=== PATIENT | female | born 1955 | race African-American/Black ===

== ENCOUNTER 2016-06-27 13:44 | Emergency (ER) | payer MEDICAID | END 2016-06-27 15:41 | disposition home or self-care (01) | LOC: D.ER 13:44 | DX: J06.9 Acute upper respiratory infection, unspecified (principal); F17.200 Nicotine dependence, unspecified, uncomplicated; I10 Essential (primary) hypertension; F41.9 Anxiety disorder, unspecified ==

== ENCOUNTER 2016-06-28 09:57 | Emergency (ER) | payer MEDICAID ==
[2016-06-28 11:30] LABS: BASOPHILS 0.4 % (0.0-2.0); EOSINOPHILS 0.1 % (0-7); HEMATOCRIT 41.6 % (36.0-48.0); IMMATURE GRANULOCYTES 0.4 % (0-5); LYMPHOCYTES 14.3 % (15-50); MCH 31.8 pg (26.0-34.0); MCHC 33.7 g/dL (31.0-37.0); MCV 94.5 fL (80.0-100.0); MEAN PLATELET VOLUME 9.8 fL (7.4-10.4); MONOCYTES 4.4 % (2-11); NEUTROPHILS 80.4 % (40-80); PLATELET COUNT 285 10x3/uL (130-400); RDW 14.1 % (11.5-14.5); WBC 8.4 10x3/uL (4.8-10.8)
== END 2016-06-28 11:55 | disposition home or self-care (01) ==
LOC: D.ER 09:57
PROVIDERS: Physician Assistant
DX: R50.9 Fever, unspecified (principal); J20.9 Acute bronchitis, unspecified; J06.9 Acute upper respiratory infection, unspecified; I10 Essential (primary) hypertension; M54.16 Radiculopathy, lumbar region; F17.200 Nicotine dependence, unspecified, uncomplicated

== ENCOUNTER 2016-06-30 09:57 | Emergency (ER) | payer MEDICAID | END 2016-06-30 11:30 | disposition home or self-care (01) | LOC: D.ER 09:57 | DX: J01.90 Acute sinusitis, unspecified (principal); J20.9 Acute bronchitis, unspecified; I10 Essential (primary) hypertension; M54.16 Radiculopathy, lumbar region; F17.200 Nicotine dependence, unspecified, uncomplicated ==

== ENCOUNTER 2016-07-08 09:15 | Emergency (ER) | payer MEDICAID | END 2016-07-08 11:30 | disposition left against medical advice (07) | LOC: D.ER 09:15 | DX: R05 Cough (principal) ==

== ENCOUNTER 2016-07-16 09:49 | Emergency (ER) | payer MEDICAID | END 2016-07-16 12:15 | disposition home or self-care (01) | LOC: D.ER 09:49 | DX: B34.9 Viral infection, unspecified (principal); R50.9 Fever, unspecified; J01.90 Acute sinusitis, unspecified; I10 Essential (primary) hypertension ==

== ENCOUNTER 2016-09-20 10:18 | Emergency (ER) | payer MEDICAID | END 2016-09-20 11:15 | disposition home or self-care (01) | LOC: D.ER 10:18 | DX: M54.9 Dorsalgia, unspecified (principal); M62.838 Other muscle spasm; T14.8 Other injury of unspecified body region; X58.XXXA Exposure to other specified factors, initial encounter; Y93.89 Activity, other specified; Y92.89 Other specified places as the place of occurrence of the external cause; J06.9 Acute upper respiratory infection, unspecified; F17.200 Nicotine dependence, unspecified, uncomplicated ==

== ENCOUNTER 2016-10-03 08:44 | Emergency (ER) | payer MEDICAID | END 2016-10-03 10:32 | disposition home or self-care (01) | LOC: D.ER 08:44 | DX: J20.9 Acute bronchitis, unspecified (principal); I10 Essential (primary) hypertension; M54.16 Radiculopathy, lumbar region; F17.200 Nicotine dependence, unspecified, uncomplicated ==

== ENCOUNTER 2016-11-03 09:24 | Emergency (ER) | payer MEDICAID | END 2016-11-03 10:27 | disposition home or self-care (01) | LOC: D.ER 09:24 | DX: S46.912A Strain of unspecified muscle, fascia and tendon at shoulder and upper arm level, left arm, initial encounter (principal); X50.0XXA Overexertion from strenuous movement or load, initial encounter; Y93.89 Activity, other specified; Y92.89 Other specified places as the place of occurrence of the external cause; F17.200 Nicotine dependence, unspecified, uncomplicated ==

== ENCOUNTER 2016-11-09 07:03 | Emergency (ER) | payer MEDICAID | END 2016-11-09 08:38 | disposition home or self-care (01) | LOC: D.ER 07:03 | DX: S43.402A Unspecified sprain of left shoulder joint, initial encounter (principal); X58.XXXA Exposure to other specified factors, initial encounter; I10 Essential (primary) hypertension ==

== ENCOUNTER 2016-11-13 08:07 | Emergency (ER) | payer MEDICAID | END 2016-11-13 09:20 | disposition home or self-care (01) | LOC: D.ER 08:07 | DX: M25.512 Pain in left shoulder (principal); I10 Essential (primary) hypertension ==

== ENCOUNTER 2016-12-26 13:28 | Emergency (ER) | payer MEDICAID | END 2016-12-26 16:05 | disposition home or self-care (01) | LOC: D.ER 13:28 | DX: M54.12 Radiculopathy, cervical region (principal); I10 Essential (primary) hypertension; F17.200 Nicotine dependence, unspecified, uncomplicated ==

== ENCOUNTER 2016-12-30 10:51 | Emergency (ER) | payer MEDICAID | END 2016-12-30 12:04 | disposition left against medical advice (07) | LOC: D.ER 10:51 | DX: R51 Headache (principal); M25.512 Pain in left shoulder ==

== ENCOUNTER 2017-01-03 09:14 | Emergency (ER) | payer MEDICAID | END 2017-01-03 09:37 | disposition left against medical advice (07) | LOC: D.ER 09:14 | DX: M54.12 Radiculopathy, cervical region (principal); I10 Essential (primary) hypertension; F17.200 Nicotine dependence, unspecified, uncomplicated ==

== ENCOUNTER 2017-01-05 11:44 | Emergency (ER) | payer MEDICAID | END 2017-01-05 15:36 | disposition left against medical advice (07) | LOC: D.ER 11:44 | DX: M25.512 Pain in left shoulder (principal) ==

== ENCOUNTER 2017-03-02 11:11 | Emergency (ER) | payer MEDICAID | END 2017-03-02 12:12 | disposition home or self-care (01) | LOC: D.ER 11:11 | DX: M54.16 Radiculopathy, lumbar region (principal); W01.0XXA Fall on same level from slipping, tripping and stumbling without subsequent striking against object, initial encounter; Y93.89 Activity, other specified; Y92.511 Restaurant or cafe as the place of occurrence of the external cause; I10 Essential (primary) hypertension; F17.200 Nicotine dependence, unspecified, uncomplicated ==

== ENCOUNTER 2017-03-09 11:01 | Emergency (ER) | payer MEDICAID | END 2017-03-09 12:07 | disposition home or self-care (01) | LOC: D.ER 11:01 | DX: S70.02XA Contusion of left hip, initial encounter (principal); W01.0XXA Fall on same level from slipping, tripping and stumbling without subsequent striking against object, initial encounter; Y93.89 Activity, other specified; Y92.511 Restaurant or cafe as the place of occurrence of the external cause; S40.012A Contusion of left shoulder, initial encounter; I10 Essential (primary) hypertension; F17.200 Nicotine dependence, unspecified, uncomplicated ==

== ENCOUNTER 2017-03-27 11:35 | Emergency (ER) | payer MEDICAID | END 2017-03-27 14:18 | disposition home or self-care (01) | LOC: D.ER 11:35 | DX: M54.16 Radiculopathy, lumbar region (principal); M25.512 Pain in left shoulder; Z91.81 History of falling; I10 Essential (primary) hypertension; F17.200 Nicotine dependence, unspecified, uncomplicated ==

== ENCOUNTER 2017-04-30 12:14 | Emergency (ER) | payer MEDICAID | END 2017-04-30 14:40 | disposition home or self-care (01) | LOC: D.ER 12:14 | DX: J20.9 Acute bronchitis, unspecified (principal); F17.200 Nicotine dependence, unspecified, uncomplicated; I10 Essential (primary) hypertension ==

== ENCOUNTER 2017-05-06 10:25 | Emergency (ER) | payer MEDICAID | END 2017-05-06 11:47 | disposition home or self-care (01) | LOC: D.ER 10:25 | DX: M54.16 Radiculopathy, lumbar region (principal); F17.200 Nicotine dependence, unspecified, uncomplicated; V43.52XA Car driver injured in collision with other type car in traffic accident, initial encounter; Y93.89 Activity, other specified; Y92.481 Parking lot as the place of occurrence of the external cause ==

== ENCOUNTER 2017-07-04 07:05 | Emergency (ER) | payer MEDICAID | END 2017-07-04 09:51 | disposition home or self-care (01) | LOC: D.ER 07:05 | DX: S80.01XA Contusion of right knee, initial encounter (principal); W01.0XXA Fall on same level from slipping, tripping and stumbling without subsequent striking against object, initial encounter; Y93.89 Activity, other specified; Y92.410 Unspecified street and highway as the place of occurrence of the external cause; M23.91 Unspecified internal derangement of right knee; F17.200 Nicotine dependence, unspecified, uncomplicated ==

== ENCOUNTER 2017-07-11 02:37 | Emergency (ER) | payer MEDICAID | END 2017-07-11 03:22 | disposition home or self-care (01) | LOC: D.ER 02:37 | DX: S83.91XA Sprain of unspecified site of right knee, initial encounter (principal); W19.XXXA Unspecified fall, initial encounter; Y93.89 Activity, other specified; Y92.019 Unspecified place in single-family (private) house as the place of occurrence of the external cause ==

== ENCOUNTER 2017-08-24 14:59 | Emergency (ER) | payer MEDICAID | END 2017-08-24 15:45 | disposition left against medical advice (07) | LOC: D.ER 14:59 | DX: S49.92XA Unspecified injury of left shoulder and upper arm, initial encounter (principal); X58.XXXA Exposure to other specified factors, initial encounter; Y93.89 Activity, other specified; Y92.89 Other specified places as the place of occurrence of the external cause ==

== ENCOUNTER 2017-10-22 12:00 | Emergency (ER) | payer MEDICAID | END 2017-10-22 14:23 | disposition home or self-care (01) | LOC: D.ER 12:00 | DX: M25.512 Pain in left shoulder (principal) ==

== ENCOUNTER 2017-10-29 10:29 | Emergency (ER) | payer MEDICAID ==
[2017-11-26] MEDS ORDERED: CATAPRES0.2 MG PO (07:48)
[2017-11-26] MEDS ORDERED: PAXIL20 MG PO (07:49)
[2017-11-26] MEDS ORDERED: PROAIR HFA8.5 GM INH (07:50)
[2017-11-26] MEDS ORDERED: PEPCID20 MG PO (07:50)
[2017-12-25 10:46] VITALS: BMI 27.5
== END 2017-10-29 11:18 | disposition home or self-care (01) ==
LOC: D.ER 10:29
DX: M25.512 Pain in left shoulder (principal)

== ENCOUNTER 2017-11-19 16:09 | Emergency (ER) | payer MEDICAID ==
[~2017-11-19] VITALS: Ht 157.5 cm; Wt 73.2 kg
[2017-11-19 16:16] VITALS: BP 141/92; Ht 157.5 cm; Wt 73.2 kg
[2017-11-19] MEDS ORDERED: KLONOPIN0.5 MG PO (16:17)
[2017-11-19] MEDS ORDERED: NORVASC10 MG PO (16:17)
[2017-11-19] MEDS ORDERED: ZOFRAN4 MG PO (16:18)
[2017-11-19] MEDS ORDERED: HYDROCODONE-APA1 TAB PO (16:18)
[2017-11-19] MEDS ORDERED: XANAX1 MG PO (16:18)
[2017-11-26] MEDS ORDERED: CATAPRES0.2 MG PO (07:48)
[2017-11-26] MEDS ORDERED: PAXIL20 MG PO (07:49)
[2017-11-26] MEDS ORDERED: PROAIR HFA8.5 GM INH (07:50)
[2017-11-26] MEDS ORDERED: PEPCID20 MG PO (07:50)
[2017-12-25 10:46] VITALS: Ht 157.5 cm; Wt 73.2 kg
== END 2017-11-19 17:35 | disposition home or self-care (01) ==
LOC: D.ER 16:09
DX: M25.512 Pain in left shoulder (principal); F17.200 Nicotine dependence, unspecified, uncomplicated

== ENCOUNTER 2017-11-27 07:00 | Day surgery (SDC) | payer MEDICAID ==
[2017-11-26 08:22] LABS: HEMATOCRIT 39.7 % (36.0-48.0); HEMOGLOBIN 13.2 g/dL (12-16); MCH 31.4 pg (26.0-34.0); MCHC 33.2 g/dL (31.0-37.0); MCV 94.3 fL (80.0-100.0); MEAN PLATELET VOLUME 9.7 fL (7.4-10.4); RBC 4.21 10x6/uL (4.00-5.40); RDW 14.4 % (11.5-14.5); WBC 9.8 10x3/uL (4.8-10.8)
[~2017-11-27] VITALS: Ht 157.5 cm; Wt 70.8 kg
--- NOTE | ~2017-11-27 | OP ---
PATIENT NAME: BARI VILLASEÑOR MEDICAL RECORD: [id number] :59 LOCATION:[facility] ADMISSION DATE: SURGEON: JABIER DONATO MD DATE OF OPERATION: 11/27/2017 PREOPERATIVE DIAGNOSIS: Impingement syndrome of the left shoulder with rotator cuff tear. POSTOPERATIVE DIAGNOSIS: Impingement syndrome of the left shoulder with rotator cuff tear. PROCEDURES: 1. Arthroscopic rotator cuff repair. 2. Arthroscopic distal clavicle excision done through separate incision -- 1 cm. 3. Arthroscopic subacromial decompression, acromioplasty and bursectomy. SURGEON: Jabier Donato MD ANESTHESIA: General. INTRAOPERATIVE COMPLICATIONS: None. SUMMARY OF PATHOLOGIC FINDINGS: A full thickness rotator cuff tear consistent with the MRI. OPERATIVE SUMMARY IN DETAIL: After the appropriate preoperative orthopedic surgery consent as well as anesthetic consultation, evaluation and clearance, the patient was brought to the operating room and placed on the operating table in supine position. After general laryngeal mask airway was administered, the patient was placed in the right lateral decubitus position. All pressure points were well padded to include down leg peroneal pad as well as axillary roll. The patient was held firmly to the operating table using the vacuum pack suction system. The left upper extremity and shoulder were then prepped and draped in routine sterile fashion. The arm was held in the [employer] traction boom at 30 degrees of forward flexion, 30 degrees of abduction, 10 pounds of traction laterally. Arthroscopy was established in the glenohumeral joint from posterior portal. Anterior portal was established in the anterior safe interval. Diagnostic arthroscopy did reveal the patient had the above findings. Transrotator cuff portal was created. The undersurface of the rotator cuff was debrided from any nonviable appearing tissue and the supraspinatus tendinous footprint was decorticated. Attention was then turned to the subacromial space. While on subacromial space, [place] tissue ablation system was utilized to denude the undersurface of the acromion of all soft tissue elements and release the coracoacromial ligament. A 5-0 barrel bur was used to perform acromioplasty at the level of acromioclavicular joint. Having completed this, arthroscopy was used to directly visualize distal clavicle while through a separate anterior arthroscopic portal, distal clavicle was excised for 1 cm. Attention was then turned to the rotator cuff tear. Further decortication was then followed by placing an inverted mattress suture through the rotator cuff tear. It was anchored laterally with a 5.5 SwiveLock from [employer]. Having completed this, arthroscopy portals were closed in routine interrupted fashion using 4-0 Prolene. Sterile dressings were applied. The patient was awakened, taken to the recovery room in stable condition. All final needle and sponge counts were correct. OPERATIVE REPORT [id number] BARI VILLASEÑOR TRANSINT:[id number] Voice Confirmation ID: [id number] DOCUMENT ID: [id number] KINGA MOSLEY, JABIER MARIANO at 1538 CC: [id number] DICTATION DATE: 11/27/17 1121 [employer] SPECIALIST: 11/27/17 1133 [facility] 11/27/17 [facility] [address] [place] [address]
[~2017-11-27 07:00] MED LIST: CATAPRES0.2 MG PO; HYDROCODONE-APA1 TAB PO; KLONOPIN0.5 MG PO; NORVASC10 MG PO; PAXIL20 MG PO; PEPCID20 MG PO; PROAIR HFA8.5 GM INH; XANAX1 MG PO; ZOFRAN4 MG PO
[2017-11-27 08:52] VITALS: Ht 157.5 cm; Wt 70.8 kg
[2017-11-27] MEDS ORDERED: HYDROCODONE-APA1 TAB PO (11:19)
== END 2017-11-27 13:30 | disposition home or self-care (01) ==
LOC: D.OPS 07:00 → D.PAN 09:00 → D.OPS 09:10
PROVIDERS: Anesthesiology
DX: M75.42 Impingement syndrome of left shoulder (principal); M75.122 Complete rotator cuff tear or rupture of left shoulder, not specified as traumatic; Z01.812 Encounter for preprocedural laboratory examination

== ENCOUNTER 2017-11-29 05:42 | Emergency (ER) | payer MEDICAID ==
[~2017-11-29] VITALS: Ht 157.5 cm; Wt 77.3 kg
[2017-11-29 05:46] VITALS: Ht 157.5 cm; Wt 77.3 kg
[2017-11-29 06:25] VITALS: BP 149/87
== END 2017-11-29 06:25 | disposition home or self-care (01) ==
LOC: D.ER 05:42
DX: M25.512 Pain in left shoulder (principal); F17.200 Nicotine dependence, unspecified, uncomplicated

== ENCOUNTER 2017-11-30 06:15 | Emergency (ER) | payer MEDICAID ==
[~2017-11-30] VITALS: Ht 157.5 cm; Wt 68.0 kg
[2017-11-30 06:25] VITALS: Ht 157.5 cm; Wt 68.0 kg
[2017-11-30 08:37] VITALS: BP 132/94
== END 2017-11-30 08:48 | disposition home or self-care (01) ==
LOC: D.ER 06:15
DX: M25.512 Pain in left shoulder (principal); I10 Essential (primary) hypertension

== ENCOUNTER 2017-12-09 09:44 | Emergency (ER) | payer MEDICAID ==
[~2017-12-09] VITALS: Ht 157.5 cm; Wt 71.2 kg
[2017-12-09 09:46] VITALS: BP 120/85; Ht 157.5 cm; Wt 71.2 kg
[2017-12-09] MEDS ORDERED: PERCOCET 10/3251 TA1 PO (09:48)
== END 2017-12-09 11:30 | disposition home or self-care (01) ==
LOC: D.ER 09:44
DX: G89.18 Other acute postprocedural pain (principal); Z98.890 Other specified postprocedural states; I10 Essential (primary) hypertension; J44.9 Chronic obstructive pulmonary disease, unspecified; F17.200 Nicotine dependence, unspecified, uncomplicated

== ENCOUNTER 2017-12-25 10:41 | Emergency (ER) | payer MEDICAID ==
[~2017-12-25] VITALS: Ht 157.5 cm; Wt 68.2 kg
[~2017-12-25 10:41] MED LIST changes: +PERCOCET 10/3251 TA1 PO
[2017-12-25 10:46] VITALS: Ht 157.5 cm; Wt 68.2 kg
[2017-12-25 12:01] VITALS: BP 139/88
[2017-12-25 16:58] LABS: UDS - AMPHET NEGATIVE QUAL (NEGATIVE); UDS - BARB NEGATIVE QUAL (NEGATIVE); UDS - BENZO POSITIVE QUAL (NEGATIVE); UDS - COCAINE NEGATIVE QUAL (NEGATIVE); UDS - OPIATE POSITIVE QUAL (NEGATIVE); UDS - PCP NEGATIVE QUAL (NEGATIVE); UDS - THC NEGATIVE QUAL (NEGATIVE)
== END 2017-12-25 11:26 | disposition home or self-care (01) ==
LOC: D.ER 10:41
PROVIDERS: Family Medicine
DX: G89.18 Other acute postprocedural pain (principal); I10 Essential (primary) hypertension; J44.9 Chronic obstructive pulmonary disease, unspecified; F17.200 Nicotine dependence, unspecified, uncomplicated

== ENCOUNTER 2018-02-20 11:12 | Emergency (ER) | payer MEDICAID ==
[~2018-02-20] VITALS: Ht 157.5 cm; Wt 70.9 kg
[2018-02-20 12:43] VITALS: BP 129/86; Ht 157.5 cm; Wt 70.9 kg
== END 2018-02-20 14:14 | disposition left against medical advice (07) ==
LOC: D.ER 11:12 → D.MRI 11:12 → EDSTATUS 11:30 → D.ER 14:14
DX: M25.512 Pain in left shoulder (principal)

== ENCOUNTER 2018-02-23 06:33 | Emergency (ER) | payer MEDICAID ==
[~2018-02-23] VITALS: Ht 157.5 cm; Wt 70.9 kg
[2018-02-23 06:38] VITALS: BP 142/88; Ht 157.5 cm; Wt 70.9 kg
== END 2018-02-23 06:54 | disposition home or self-care (01) ==
LOC: D.ER 06:33
DX: M25.512 Pain in left shoulder (principal); G89.29 Other chronic pain; I10 Essential (primary) hypertension; J44.9 Chronic obstructive pulmonary disease, unspecified

== ENCOUNTER 2018-03-09 09:33 | Emergency (ER) | payer MEDICAID ==
[~2018-03-09] VITALS: Ht 157.5 cm; Wt 68.2 kg
[2018-03-09 09:52] VITALS: BP 135/85; Ht 157.5 cm; Wt 68.2 kg
== END 2018-03-09 12:33 | disposition home or self-care (01) ==
LOC: D.ER 09:33
DX: M25.512 Pain in left shoulder (principal); I10 Essential (primary) hypertension; J44.9 Chronic obstructive pulmonary disease, unspecified; F17.200 Nicotine dependence, unspecified, uncomplicated

== ENCOUNTER 2018-08-02 12:26 | Emergency (ER) | payer MEDICAID ==
[~2018-08-02] VITALS: Ht 157.5 cm; Wt 75.0 kg
[2018-08-02 12:34] VITALS: BP 171/89; Ht 157.5 cm; Wt 75.0 kg
== END 2018-08-02 13:59 | disposition left against medical advice (07) ==
LOC: D.ER 12:26
DX: R10.10 Upper abdominal pain, unspecified (principal); R11.2 Nausea with vomiting, unspecified; R19.7 Diarrhea, unspecified

== ENCOUNTER 2018-09-18 17:51 | Emergency (ER) | payer MEDICAID ==
[~2018-09-18] VITALS: Ht 157.5 cm; Wt 75.0 kg
[2018-09-18 17:56] VITALS: Ht 157.5 cm; Wt 75.0 kg
[2018-09-18] MEDS ORDERED: HYDROCODON-ACE1 EA10 PO (18:00)
[2018-09-18] MEDS ORDERED: MEDROL DOSE PACK4 MG PO (18:53)
[2018-09-18 19:03] VITALS: BP 122/86
== END 2018-09-18 19:04 | disposition home or self-care (01) ==
LOC: D.ER 17:51
DX: M25.512 Pain in left shoulder (principal)

== ENCOUNTER 2018-10-31 13:41 | Emergency (ER) | payer MEDICAID ==
[~2018-10-31 13:41] MED LIST changes: +HYDROCODON-ACE1 EA10 PO; +MEDROL DOSE PACK4 MG PO
[2018-10-31 13:50] VITALS: BP 133/113; BMI 31.1
== END 2018-10-31 14:39 | disposition left against medical advice (07) ==
LOC: D.ER 13:41
DX: M25.552 Pain in left hip (principal)

== ENCOUNTER 2018-12-28 08:36 | Emergency (ER) | payer MEDICAID ==
[~2018-12-28] VITALS: Ht 157.5 cm; Wt 77.7 kg
[2018-12-28 08:38] VITALS: Ht 157.5 cm; Wt 77.7 kg
[2018-12-28] MEDS ORDERED: STOOL SOFTENER100 M1 PO (08:42)
[2018-12-28] MEDS ORDERED: HYDROCODON-ACE1 EA10 PO (09:04)
[2018-12-28] MEDS ORDERED: BACTRIM 400-801 TAB PO (09:04)
[2018-12-28 09:20] VITALS: BP 144/92
== END 2018-12-28 09:15 | disposition home or self-care (01) ==
LOC: D.ER 08:36
DX: L02.415 Cutaneous abscess of right lower limb (principal)

== ENCOUNTER 2019-01-06 03:37 | Emergency (ER) | payer MEDICAID ==
[~2019-01-06] VITALS: Ht 157.5 cm; Wt 73.2 kg
[~2019-01-06 03:37] MED LIST changes: +BACTRIM 400-801 TAB PO; +STOOL SOFTENER100 M1 PO
[2019-01-06 03:43] VITALS: Ht 157.5 cm; Wt 73.2 kg
[2019-01-06] MEDS ORDERED: HYDROCODONE-A1 UDTA2 PO (04:05)
[2019-01-06 04:13] VITALS: BP 150/88
== END 2019-01-06 04:13 | disposition home or self-care (01) ==
LOC: D.ER 03:37
DX: L02.415 Cutaneous abscess of right lower limb (principal)

== ENCOUNTER 2019-04-19 15:31 | Emergency (ER) | payer MEDICAID ==
[~2019-04-19] VITALS: Ht 157.5 cm; Wt 76.4 kg
[~2019-04-19 15:31] MED LIST changes: +HYDROCODONE-A1 UDTA2 PO
[2019-04-19 15:45] VITALS: BP 137/91; Ht 157.5 cm; Wt 76.4 kg
[2019-04-19 16:34] LABS: BASOPHILS 0.2 % (0-2); EOSINOPHILS 1.1 % (0-7); HEMOGLOBIN 12.9 g/dL (12-16); IMMATURE GRANULOCYTES 0.3 % (0-5); MCH 30.8 pg (26.0-34.0); MCHC 33.1 g/dL (31.0-37.0); MCV 93.1 fL (80.0-100.0); MEAN PLATELET VOLUME 9.6 fL (7.4-10.4); MONOCYTES 7.8 % (2-11); NEUTROPHILS 60.6 % (40-80); PLATELET COUNT 355 10x3/uL (130-400); RBC 4.19 10x6/uL (4.00-5.40); RDW 14.2 % (11.5-14.5); WBC 9.5 10x3/uL (4.8-10.8)
[2019-04-19 16:41] LABS: INR 0.97 (0.85-1.17); PROTIME 12.4 SECONDS (11.6-15.0)
[2019-04-19 16:43] LABS: CALC OSMOLALITY 292 mosm/kg (275-300); CALCIUM 9.2 mg/dL (8.5-10.1); CARBON DIOXIDE 30.2 mmol/L (21.0-32.0); CHLORIDE - SERUM 107 mmol/L (98-107); POTASSIUM - SERUM 3.6 mmol/L (3.5-5.1); SODIUM 145 mmol/L (136-145); UREA NITROGEN 13 mg/dL (7-18); eGFR NON AFRICAN AMERICAN 60 mL/min (90-120)
[2019-04-19 16:45] LABS: GLUCOSE 171 mg/dL (74-106)
[2019-04-19 16:59] LABS: ALBUMIN 3.6 g/dL (3.4-5.0); ALKALINE PHOSPHATASE 135 U/L (46-116); ALT (SGPT) 21 U/L (10-68); BILIRUBIN - TOTAL 0.27 mg/dL (0.2-1.3); CKMB 0.6 U/L (0.0-3.6); CREATINE KINASE 155 UL (21-215); PRO BNP 169 pg/mL (0-125); PROTEIN - SERUM 7.5 g/dL (6.4-8.2); TROPONIN-I < 0.017 ng/mL (0.000-0.060)
[2019-04-19] MEDS ORDERED: TESSALON PERLE100 MG PO (17:16)
== END 2019-04-19 17:30 | disposition home or self-care (01) ==
LOC: D.ER 15:31
PROVIDERS: Family Medicine
DX: R05 Cough (principal); I10 Essential (primary) hypertension; Z72.0 Tobacco use; J44.9 Chronic obstructive pulmonary disease, unspecified; J45.909 Unspecified asthma, uncomplicated; R11.0 Nausea; J02.9 Acute pharyngitis, unspecified; R68.83 Chills (without fever)

== ENCOUNTER 2019-04-21 10:36 | Emergency (ER) | payer MEDICAID ==
[~2019-04-21] VITALS: Ht 157.5 cm; Wt 76.4 kg
[~2019-04-21 10:36] MED LIST changes: +TESSALON PERLE100 MG PO
[2019-04-21 10:40] VITALS: Ht 157.5 cm; Wt 76.4 kg
[2019-04-21] MEDS ORDERED: STERAPRED 5MG 65 M1 PO (12:10)
[2019-04-21 12:19] VITALS: BP 131/68
== END 2019-04-21 12:19 | disposition home or self-care (01) ==
LOC: D.ER 10:36
DX: R05 Cough (principal); Z91.14 Patient's other noncompliance with medication regimen; I10 Essential (primary) hypertension; Z72.0 Tobacco use; J44.9 Chronic obstructive pulmonary disease, unspecified

== ENCOUNTER 2019-04-25 14:22 | Emergency (ER) | payer MEDICAID ==
[~2019-04-25] VITALS: Ht 157.5 cm; Wt 77.3 kg
[~2019-04-25 14:22] MED LIST changes: +STERAPRED 5MG 65 M1 PO
[2019-04-25 14:24] VITALS: Ht 157.5 cm; Wt 77.3 kg
[2019-04-25] MEDS ORDERED: LEVAQUIN750 MG PO (15:35)
[2019-04-25 16:07] VITALS: BP 113/78
== END 2019-04-25 16:08 | disposition home or self-care (01) ==
LOC: D.ER 14:22
DX: J20.9 Acute bronchitis, unspecified (principal); I10 Essential (primary) hypertension; J44.0 Chronic obstructive pulmonary disease with (acute) lower respiratory infection; Z72.0 Tobacco use

== ENCOUNTER 2019-04-30 07:01 | Emergency (ER) | payer MEDICAID ==
[~2019-04-30] VITALS: Ht 157.5 cm; Wt 76.4 kg
[~2019-04-30 07:01] MED LIST changes: +LEVAQUIN750 MG PO
[2019-04-30 07:10] VITALS: BP 132/86; Ht 157.5 cm; Wt 76.4 kg
[2019-05-01] MEDS ORDERED: NAPROSYN500 MG PO (16:05)
[2019-05-01] MEDS ORDERED: ALBUTEROL SULF8.5 GM INH (16:05)
== END 2019-04-30 07:57 | disposition left against medical advice (07) ==
LOC: D.ER 07:01
DX: R05 Cough (principal); Z53.29 Procedure and treatment not carried out because of patient's decision for other reasons; I10 Essential (primary) hypertension; J44.9 Chronic obstructive pulmonary disease, unspecified

== ENCOUNTER 2019-05-01 12:18 | Emergency (ER) | payer MEDICAID ==
[~2019-05-01] VITALS: Ht 157.5 cm; Wt 72.7 kg
[2019-05-01 12:27] VITALS: BP 132/94; Ht 157.5 cm; Wt 72.7 kg
[2019-05-01] MEDS ORDERED: ALBUTEROL SULF8.5 GM INH (16:05)
[2019-05-01] MEDS ORDERED: NAPROSYN500 MG PO (16:05)
== END 2019-05-01 14:21 | disposition left against medical advice (07) ==
LOC: D.ER 12:18
DX: R05 Cough (principal); R09.81 Nasal congestion

== ENCOUNTER 2019-05-01 14:52 | Emergency (ER) | payer MEDICAID ==
[~2019-05-01] VITALS: Ht 157.5 cm; Wt 75.0 kg
[2019-05-01 14:57] VITALS: BP 115/84; Ht 157.5 cm; Wt 75.0 kg
[2019-05-01] MEDS ORDERED: NAPROSYN500 MG PO (16:05)
[2019-05-01] MEDS ORDERED: ALBUTEROL SULF8.5 GM INH (16:05)
== END 2019-05-01 16:17 | disposition home or self-care (01) ==
LOC: D.ER 14:52
DX: R05 Cough (principal); R09.81 Nasal congestion; I10 Essential (primary) hypertension; Z72.0 Tobacco use

== ENCOUNTER 2019-06-19 13:35 | Emergency (ER) | payer MEDICAID ==
[~2019-06-19 13:35] MED LIST changes: +ALBUTEROL SULF8.5 GM INH; +NAPROSYN500 MG PO
[2019-06-19 13:43] VITALS: BP 144/60; Ht 157.5 cm
== END 2019-06-19 14:49 | disposition left against medical advice (07) ==
LOC: D.ER 13:35
DX: S89.90XA Unspecified injury of unspecified lower leg, initial encounter (principal)

== ENCOUNTER 2019-06-19 15:00 | Emergency (ER) | payer MEDICAID | END 2019-06-19 16:13 | disposition left against medical advice (07) | LOC: D.ER 15:00 | DX: M25.569 Pain in unspecified knee (principal) ==

== ENCOUNTER 2019-06-20 08:25 | Emergency (ER) | payer MEDICAID ==
[~2019-06-20] VITALS: Ht 157.5 cm; Wt 77.3 kg
[2019-06-20 08:27] VITALS: BP 140/80; Ht 157.5 cm; Wt 77.3 kg
== END 2019-06-20 09:19 | disposition home or self-care (01) ==
LOC: D.ER 08:25
DX: M25.562 Pain in left knee (principal); Z76.5 Malingerer [conscious simulation]; I10 Essential (primary) hypertension; Z72.0 Tobacco use

== ENCOUNTER 2019-11-04 12:49 | Emergency (ER) | payer MEDICAID ==
[~2019-11-04] VITALS: Ht 157.5 cm; Wt 72.7 kg
[2019-11-04 13:11] VITALS: BP 136/82; Ht 157.5 cm; Wt 72.7 kg
== END 2019-11-04 14:27 | disposition home or self-care (01) ==
LOC: D.ER 12:49
DX: M25.562 Pain in left knee (principal); G89.29 Other chronic pain; I10 Essential (primary) hypertension; J44.9 Chronic obstructive pulmonary disease, unspecified; Z72.0 Tobacco use

== ENCOUNTER 2019-11-19 13:14 | Emergency (ER) | payer MEDICAID ==
[~2019-11-19] VITALS: Ht 157.5 cm; Wt 79.5 kg
[2019-11-19 13:31] VITALS: BP 138/71; Ht 157.5 cm; Wt 79.5 kg
== END 2019-11-19 14:00 | disposition home or self-care (01) ==
LOC: D.ER 13:14
DX: M25.562 Pain in left knee (principal); G89.29 Other chronic pain; Z76.5 Malingerer [conscious simulation]; I10 Essential (primary) hypertension; J44.9 Chronic obstructive pulmonary disease, unspecified

== ENCOUNTER 2020-08-06 19:11 | Emergency (ER) | payer MEDICAID ==
[2020-06-01 23:27] VITALS: Ht 157.5 cm; Wt 68.0 kg
[~2020-08-06] VITALS: Ht 157.5 cm; Wt 68.0 kg
[2020-08-06] MEDS ORDERED: BACLOFEN20 M1 PO (20:11)
[2020-08-06 20:25] VITALS: BP 147/85
== END 2020-08-06 20:25 | disposition home or self-care (01) ==
LOC: D.ER 19:11
DX: M25.562 Pain in left knee (principal); M25.512 Pain in left shoulder; W19.XXXA Unspecified fall, initial encounter; Y93.9 Activity, unspecified; Y92.9 Unspecified place or not applicable; I10 Essential (primary) hypertension; J44.9 Chronic obstructive pulmonary disease, unspecified; Z72.0 Tobacco use

== ENCOUNTER 2020-10-05 11:44 | Emergency (ER) | payer MEDICAID ==
[~2020-10-05] VITALS: Ht 157.5 cm; Wt 72.7 kg
[~2020-10-05 11:44] MED LIST changes: +BACLOFEN20 M1 PO
[2020-10-05 11:47] VITALS: Ht 157.5 cm; Wt 72.7 kg
[2020-10-05 12:25] LABS: BASOPHILS 0.3 % (0-2); EOSINOPHILS 0.6 % (0-7); HEMATOCRIT 40.4 % (36.0-48.0); HEMOGLOBIN 13.5 g/dL (12-16); IMMATURE GRANULOCYTES 0.3 % (0-5); LYMPHOCYTE ABS# 2.54 10x3/uL (1.18-3.74); LYMPHOCYTES 24.2 % (15-50); MCH 30.8 pg (26.0-34.0); MCHC 33.4 g/dL (31.0-37.0); MEAN PLATELET VOLUME 9.9 fL (7.4-10.4); MONOCYTES 6.5 % (2-11); NEUTROPHIL ABS# 7.15 10x3/uL (1.56-6.13); NEUTROPHILS 68.1 % (40-80); PLATELET COUNT 277 10x3/uL (130-400); RBC 4.39 10x6/uL (4.00-5.40); RDW 14.4 % (11.5-14.5); WBC 10.5 10x3/uL (4.8-10.8)
[2020-10-05 12:35] LABS: CALC OSMOLALITY 286 mosm/kg (275-300); CALCIUM 9.3 mg/dL (8.5-10.1); CARBON DIOXIDE 25.9 mmol/L (21.0-32.0); CHLORIDE - SERUM 108 mmol/L (98-107); CREATININE - SERUM 0.8 mg/dL (0.6-1.3); GLUCOSE 153 mg/dL (74-106); POTASSIUM - SERUM 3.6 mmol/L (3.5-5.1); SODIUM 142 mmol/L (136-145); UREA NITROGEN 14 mg/dL (7-18); eGFR NON AFRICAN AMERICAN 77 mL/min (90-120)
[2020-10-05 12:41] LABS: ALBUMIN 3.5 g/dL (3.4-5.0); ALKALINE PHOSPHATASE 102 U/L (30-120); ALT (SGPT) 17 U/L (10-68); BILIRUBIN - TOTAL 0.31 mg/dL (0.2-1.3); PROTEIN - SERUM 7.7 g/dL (6.4-8.2)
[2020-10-05 13:03] LABS: BILIRUBIN NEGATIVE (NEGATIVE); KETONE NEGATIVE (NEGATIVE); NITRITE NEGATIVE (NEGATIVE); UROBILINOGEN NORMAL mg/dL (< 2)
[2020-10-05 13:15] VITALS: BP 138/90
== END 2020-10-05 13:16 | disposition home or self-care (01) ==
LOC: D.ER 11:44
PROVIDERS: Emergency Medicine
DX: S16.1XXA Strain of muscle, fascia and tendon at neck level, initial encounter (principal); R11.2 Nausea with vomiting, unspecified; S60.222A Contusion of left hand, initial encounter; I10 Essential (primary) hypertension; J44.9 Chronic obstructive pulmonary disease, unspecified; V89.2XXA Person injured in unspecified motor-vehicle accident, traffic, initial encounter; Y93.9 Activity, unspecified; Y92.9 Unspecified place or not applicable